=== PATIENT | female | born 1960 | race African-American/Black ===

== ENCOUNTER 2017-02-04 12:16 | Inpatient (IN) | payer OTHER ==
[~2017-02-04] VITALS: Ht 167.6 cm; Wt 121.1 kg
[2017-02-04] MEDS ORDERED: ASPIRIN 81MG TABLET PO STA (17:02)
[2017-02-04] MEDS ORDERED: NITROGLYCERIN OINT 1GM/INCH UDPKT TD STA (17:02)
[2017-02-04] MEDS ORDERED: CLONIDINE 0.2MG TABLET PO ONE (17:15)
[2017-02-04 17:45] LABS: CHLORIDE 106 mEq/L (98-107)
[2017-02-04 17:46] LABS: BASOPHILS % 0.1 % (0.0-2.0); EOSINOPHILS % 1.8 % (0.0-5.0); HEMATOCRIT. 42.1 % (36.0-48.0); HEMOGLOBIN. 13.6 g/dL (12.0-16.0); LYMPHOCYTES % 23.2 % (20.0-50.0); MEAN CORPUSCULAR HEMOGLOBIN 26.9 pg (28.0-32.0); MEAN CORPUSCULAR VOLUME 83.3 fL (81.0-99.0); MEAN PLATELET VOLUME 8.2 fl (7.4-10.4); MONOCYTES % 8.2 % (2.0-8.0); NEUTROPHILS % 66.7 % (40.0-76.0); PLATELET 284 x1000/uL (130-400); RED BLOOD CELL COUNT 5.05 mill/uL (4.2-5.4); RED CELL DISTRIBUTION WIDTH 15.2 % (11.6-14.6)
[2017-02-04 17:47] LABS: D-DIMER 0.52 mg/L FEU (<0.50); PARTIAL THROMBOPLASTIN TIME 28.3 sec (23.4-31.0); PROTHROMBIN TIME 10.7 sec (9.4-11.6)
[2017-02-04 17:51] LABS: CARBON DIOXIDE 28 mEq/L (21-32)
[2017-02-04 17:54] LABS: TROPONIN I 0.03 ng/mL (0.00-0.04)
[2017-02-04] MEDS ORDERED: LEVOFLOXACIN 750MG PREMIX 150 ML IV ONE (19:15)
[2017-02-04] MEDS ORDERED: SODIUM CHLORIDE 0.9% 1000ML BAG (SEPSIS BOLUS) IV ONE (19:15)
[2017-02-04] MEDS ORDERED: IOHEXOL-350 100 ML BOTTLE ONE (19:49)
[2017-02-04 21:04] LABS: CLARITY URINE CLEAR (CLEAR); COLOR URINE YELLOW (YELLOW); KETONES URINE NEGATIVE (NEGATIVE); LEUKOCYTE ESTERASE URINE TRACE (NEGATIVE); NITRITE URINE NEGATIVE (NEGATIVE); OCCULT BLOOD URINE NEGATIVE (NEGATIVE); PROTEIN URINE NEGATIVE (NEGATIVE); SPECIFIC GRAVITY URINE 1.041 (1.005-1.030); UROBILINOGEN URINE 0.2 E.U./dL (0.2-1.0)
[2017-02-04 22:00] VITALS: BP 136/71
[2017-02-04] MEDS ORDERED: ASPI-1159 PO (22:47)
[2017-02-04] MEDS ORDERED: FURO20TA4 PO (22:47)
[2017-02-04] MEDS ORDERED: LISI40TA4 PO (22:47)
[2017-02-04] MEDS ORDERED: RANI150T7 PO (22:47)
[2017-02-04] MEDS ORDERED: LABE300T PO (22:47)
[2017-02-04] MEDS ORDERED: SPIR25TA4 PO (22:47)
[2017-02-04] MEDS ORDERED: METF10002 PO (22:47)
[2017-02-04] MEDS ORDERED: NIFE-1 PO (22:47)
[2017-02-04] MEDS ORDERED: DOCU-138 PO (22:47)
[2017-02-04] MEDS ORDERED: ATOR-2 PO (22:47)
[2017-02-04] MEDS ORDERED: DULA0.75 SQ (22:51)
[2017-02-04] MEDS ORDERED: MAGNESIUM/ALUMINUM HYDROXIDE/SIMETHICONE 30ML UDC PO PRN (23:30)
[2017-02-04] MEDS ORDERED: DOCUSATE SODIUM 100MG CAPSULE PO PRN (23:30)
[2017-02-04] MEDS ORDERED: MORPHINE SULFATE 2 MG/ML CPJ (NOT FOR IM USE) IV PRN (23:30)
[2017-02-04] MEDS ORDERED: DIPHENHYDRAMINE 50MG/ML VIAL IV PRN (23:30)
[2017-02-04] MEDS ORDERED: ACETAMINOPHEN 650MG SUPP PR PRN (23:30)
[2017-02-04] MEDS ORDERED: ONDANSETRON HCL 4MG/2ML VIAL IV PRN (23:30)
[2017-02-04] MEDS ORDERED: NA PHOS,M-B/NA PHOS,DI-BA ENEMA 118ML PR PRN (23:30)
[2017-02-04] MEDS ORDERED: HYDROCODONE/ACETAMINOPHEN 10/325MG TABLET PO PRN (23:30)
[2017-02-04] MEDS ORDERED: ACETAMINOPHEN 325MG TABLET PO PRN (23:30)
[2017-02-04] MEDS ORDERED: ACETAMINOPHEN 650MG/20.3ML UDC GT PRN (23:30)
[2017-02-04] MEDS ORDERED: IPRATROPIUM/ALBUTEROL 0.5-3(2.5)MG/3ML NEB INH PRN (23:30)
[2017-02-04] MEDS ORDERED: GUAIFENESIN 200MG/10ML SUGAR FREE UDC PO PRN (23:30)
[2017-02-04] MEDS ORDERED: HYDROCODONE/ACETAMINOPHEN 5/325MG TABLET PO PRN (23:30)
[2017-02-05] VITALS: BP 164/88
[2017-02-05] MEDS: SULFAMETHOXAZOLE/TRIMETHOPRIM 800/160MG TABLET PO SCH ×3 (01:15→20:56)
[2017-02-05] MEDS: ENOXAPARIN 40MG/0.4ML SYR SUBCUT SCH ×2 (01:16→10:43)
[2017-02-05] MEDS: IPRATROPIUM/ALBUTEROL 0.5-3(2.5)MG/3ML NEB INH SCH ×3 (01:37→13:25)
[2017-02-05 04:00] VITALS: BP 171/81
[2017-02-05] MEDS: SODIUM CHLORIDE 0.9% INJ 3ML FLUSH IVF SCH ×3 (05:55→20:55)
[2017-02-05 08:00] VITALS: BP_SYST 122; BP_SYST 127; BP_DIAS 65; BP_DIAS 72
[2017-02-05 08:55] LABS: CREATINE KINASE 190 IU/L (26-192); TROPONIN I < 0.02 ng/mL (0.00-0.04)
[2017-02-05] MEDS ORDERED: ASPIRIN 81MG EC TABLET PO SCH (09:00)
[2017-02-05 09:48] LABS: *AMPHETAMINES SCREEN URINE NEGATIVE (NEGATIVE); *BARBITURATES SCREEN URINE NEGATIVE (NEGATIVE); *BENZODIAZEPINES SCREEN URINE NEGATIVE (NEGATIVE); *COCAINE SCREEN URINE NEGATIVE (NEGATIVE); CANNABINOID URINE SCREEN NEGATIVE (NEGATIVE); METHADONE URINE SCREEN NEGATIVE (NEGATIVE); OPIATES URINE SCREEN PRESUMTIVE POSITIVE (NEGATIVE); PHENCYCLIDINE URINE SCREEN NEGATIVE (NEGATIVE)
[2017-02-05 10:07] LABS: CLARITY URINE CLEAR (CLEAR); COLOR URINE YELLOW (YELLOW); KETONES URINE NEGATIVE (NEGATIVE); LEUKOCYTE ESTERASE URINE NEGATIVE (NEGATIVE); NITRITE URINE NEGATIVE (NEGATIVE); OCCULT BLOOD URINE NEGATIVE (NEGATIVE); PROTEIN URINE NEGATIVE (NEGATIVE); SPECIFIC GRAVITY URINE 1.036 (1.005-1.030); UROBILINOGEN URINE 0.2 E.U./dL (0.2-1.0)
[2017-02-05] MEDS: SPIRONOLACTONE 25MG TABLET PO SCH (10:39)
[2017-02-05] MEDS: FUROSEMIDE 20MG TABLET PO SCH (10:40)
[2017-02-05] MEDS: DOCUSATE SODIUM 100MG CAPSULE PO SCH ×2 (10:40→18:24)
[2017-02-05] MEDS: LABETALOL HCL 300MG TABLET PO SCH ×2 (10:41→20:57)
[2017-02-05] MEDS: LISINOPRIL 40MG TABLET PO SCH (10:43)
[2017-02-05] MEDS ORDERED: REGADENOSON 0.4 MG/5 ML IV ONE ×2 (11:45→13:57)
[2017-02-05 12:00] VITALS: BP 130/71
[2017-02-05 12:39] LABS: T4 FREE 1.02 ng/dL (0.76-1.46)
[2017-02-05 16:23] VITALS: BP 164/74
[2017-02-05 17:47] LABS: CREATINE KINASE 205 IU/L (26-192); CREATINE KINASE MB FRACTION 3.9 ng/mL (0.5-3.6); TROPONIN I < 0.02 ng/mL (0.00-0.04)
[2017-02-05 20:00] VITALS: BP 139/52
[2017-02-06] VITALS: BP 129/58
[2017-02-06 00:16] LABS: CARBON DIOXIDE 26 mEq/L (21-32); CHLORIDE 105 mEq/L (98-107)
[2017-02-06 00:22] LABS: CREATINE KINASE MB FRACTION 3.9 ng/mL (0.5-3.6)
[2017-02-06] MEDS: IPRATROPIUM/ALBUTEROL 0.5-3(2.5)MG/3ML NEB INH SCH ×3 (03:09→14:30)
[2017-02-06 04:00] VITALS: BP 142/57
[2017-02-06] MEDS: SODIUM CHLORIDE 0.9% INJ 3ML FLUSH IVF SCH (05:51)
[2017-02-06] MEDS ORDERED: SODIUM CHLORIDE 0.9% 10ML VIAL ONE (06:50)
[2017-02-06 07:18] LABS: BASOPHILS % 0.3 % (0.0-2.0); EOSINOPHILS % 1.6 % (0.0-5.0); HEMATOCRIT. 36.8 % (36.0-48.0); HEMOGLOBIN. 11.7 g/dL (12.0-16.0); LYMPHOCYTES % 30.7 % (20.0-50.0); MEAN CORPUSCULAR HEMOGLOBIN 26.2 pg (28.0-32.0); MEAN CORPUSCULAR VOLUME 82.7 fL (81.0-99.0); MEAN PLATELET VOLUME 8.4 fl (7.4-10.4); MONOCYTES % 10.9 % (2.0-8.0); NEUTROPHILS % 56.5 % (40.0-76.0); PLATELET 266 x1000/uL (130-400); RED BLOOD CELL COUNT 4.45 mill/uL (4.2-5.4)
[2017-02-06 08:00] VITALS: BP 138/67
[2017-02-06] MEDS ORDERED: ASPIRIN 81MG TABLET PO SCH (09:00)
[2017-02-06] MEDS: LABETALOL HCL 300MG TABLET PO SCH (09:16)
[2017-02-06] MEDS: SULFAMETHOXAZOLE/TRIMETHOPRIM 800/160MG TABLET PO SCH (09:17)
[2017-02-06] MEDS: DOCUSATE SODIUM 100MG CAPSULE PO SCH (09:17)
[2017-02-06] MEDS: FUROSEMIDE 20MG TABLET PO SCH (09:17)
[2017-02-06] MEDS: SPIRONOLACTONE 25MG TABLET PO SCH (09:17)
[2017-02-06] MEDS: LISINOPRIL 40MG TABLET PO SCH (09:17)
[2017-02-06] MEDS: ENOXAPARIN 40MG/0.4ML SYR SUBCUT SCH (09:18)
[2017-02-06 13:17] VITALS: BP 153/68
[2017-02-06] MEDS ORDERED: ENOXAPARIN 30MG/0.3ML SYR SUBCUT SCH (21:00)
== END 2017-02-06 14:45 | disposition home or self-care (01) | DRG 313 ==
LOC: ER 13:30 → 5WST 19:35 → EDBEDREQ 19:37 → EDBEDREQTM 19:37 → ENRESERV 19:50
PROVIDERS: ADMIT Family Medicine; ATTEND Family Medicine
DX: R07.9 Chest pain, unspecified (principal); I25.10 Atherosclerotic heart disease of native coronary artery without angina pectoris; I11.0 Hypertensive heart disease with heart failure; I50.9 Heart failure, unspecified; I42.9 Cardiomyopathy, unspecified; I50.32 Chronic diastolic (congestive) heart failure; Z68.43 Body mass index [BMI] 50.0-59.9, adult; E11.9 Type 2 diabetes mellitus without complications; E66.9 Obesity, unspecified; E78.5 Hyperlipidemia, unspecified; K57.90 Diverticulosis of intestine, part unspecified, without perforation or abscess without bleeding; Z60.2 Problems related to living alone; I25.2 Old myocardial infarction; Z79.899 Other long term (current) drug therapy; Z79.82 Long term (current) use of aspirin; Z88.8 Allergy status to other drugs, medicaments and biological substances
CPT/HCPCS: 36415; 71010; 71275; 78452; 80048; 80053; 80061; 80305; 81001; 81003; 82550; 82553; 82962; 83036; 83605; 83880; 84439; 84443; 84484; 85025; 85379; 85610; 85730; 87040; 87086; 93005; 93017; 93306; 94640; 96374; 99285; A4216; A9500; J1650; J1956; J2785; J7030; J7620; Q9967

== ENCOUNTER 2021-02-22 02:48 | Inpatient (IN) | payer MEDICAID, OTHER ==
[~2021-02-22] VITALS: Ht 157.5 cm; Wt 113.4 kg
[~2021-02-22 02:48] MED LIST: ASPI-1497 PO; ATOR-2 PO; DOCU-138 PO; DULA0.75 SQ; FURO20TA4 PO; LABE300T3 PO; LISI40TA13 PO; METF-416 PO; NIFE-53 PO; RANI150T7 PO; SPIR25TA6 PO
[2021-02-22] MEDS ORDERED: ONDANSETRON HCL 4MG/2ML INJ IV STA (03:14)
[2021-02-22] MEDS ORDERED: MORPHINE SULFATE 4 MG/ML CPJ (NOT FOR IM USE) IV STA (03:14)
[2021-02-22] MEDS ORDERED: MAGNESIUM/ALUMINUM HYDROXIDE/SIMETHICONE 30ML UDC PO ONE (03:15)
[2021-02-22] MEDS ORDERED: NITROGLYCERIN 0.4MG TABLET SL SL PRN ×2 (03:15→10:30)
[2021-02-22] MEDS ORDERED: VISCOUS LIDOCAINE 2% 15 ML UDC PO ONE (03:15)
[2021-02-22 04:59] LABS: CHLORIDE 106 mEq/L (98-107)
[2021-02-22 08:38] LABS: BASOPHILS % 0.5 % (0.0-2.0); EOSINOPHILS % 0.5 % (0.0-5.0); HEMATOCRIT. 38.1 % (36.0-48.0); HEMOGLOBIN. 12.1 g/dL (12.0-16.0); LYMPHOCYTES % 33.8 % (20.0-50.0); MEAN CORPUSCULAR HEMOGLOBIN 25.9 pg (28.0-32.0); MEAN CORPUSCULAR VOLUME 81.6 fL (81.0-99.0); MEAN PLATELET VOLUME 9.1 fl (7.4-10.4); MONOCYTES % 11.3 % (2.0-8.0); NEUTROPHILS % 53.9 % (40.0-76.0); PLATELET 207 x1000/uL (130-400); RED BLOOD CELL COUNT 4.67 mill/uL (4.2-5.4); RED CELL DISTRIBUTION WIDTH 16.4 % (11.6-14.6)
[2021-02-22] MEDS ORDERED: IPRATROPIUM/ALBUTEROL 0.5-3(2.5)MG/3ML NEB NEB PRN (10:00)
[2021-02-22] MEDS ORDERED: KETOROLAC 15MG/ML VIAL IV PRN (10:00)
[2021-02-22] MEDS ORDERED: GUAIFENESIN 200MG/10ML SUGAR FREE UDC PO PRN (10:00)
[2021-02-22] MEDS ORDERED: ONDANSETRON HCL 4MG/2ML INJ IV PRN (10:00)
[2021-02-22] MEDS ORDERED: ACETAMINOPHEN 325MG TABLET PO PRN ×2 (10:00)
[2021-02-22] MEDS ORDERED: MAGNESIUM/ALUMINUM HYDROXIDE/SIMETHICONE 30ML UDC PO PRN (10:00)
[2021-02-22] MEDS ORDERED: DOCUSATE SODIUM 100MG CAPSULE PO PRN (10:00)
[2021-02-22] MEDS ORDERED: DEXTROSE 50% WATER 50ML SYRINGE IV PRN (10:00)
[2021-02-22 10:51] LABS: FOLIC ACID (FOLATE) SERUM 14.9 ng/mL (>5.38)
[2021-02-22] MEDS: NIFEDIPINE XL 30MG TAB PO SCH (11:15)
[2021-02-22] MEDS: ENOXAPARIN 40MG/0.4ML SYR SUBCUT SCH (11:15)
[2021-02-22] MEDS: LABETALOL HCL 300MG TABLET PO SCH ×2 (11:26→23:44)
[2021-02-22] MEDS: BLOOD SUGAR DIAGNOSTIC STRIP TEST SCH ×3 (11:43→21:00)
[2021-02-22] MEDS: INSULIN LISPRO 100 UNITS/ML SUBCUT SCH ×3 (12:00→21:00)
[2021-02-22 14:52] LABS: CREATINE KINASE MB FRACTION 4.4 ng/mL (0.5-3.6)
[2021-02-22] MEDS: FUROSEMIDE 40MG/4ML VIAL IVP SCH (18:00)
[2021-02-22] MEDS ORDERED: FUROSEMIDE 40MG/4ML VIAL IVP SCH (21:00)
[2021-02-22] MEDS ORDERED: ZOLPIDEM TARTRATE 5MG TABLET PO PRN (21:00)
[2021-02-22] MEDS ORDERED: SPIRONOLACTONE 25MG TABLET PO SCH (21:00)
[2021-02-22 23:27] VITALS: BP 150/87
[2021-02-22] MEDS: FAMOTIDINE 20MG TABLET PO SCH (23:44)
[2021-02-23] VITALS: BP 150/87
[2021-02-23 04:00] VITALS: BP 130/79
[2021-02-23] MEDS: FUROSEMIDE 40MG/4ML VIAL IVP SCH ×2 (06:19→17:33)
[2021-02-23 06:50] LABS: BASOPHILS % 0.6 % (0.0-2.0); EOSINOPHILS % 1.1 % (0.0-5.0); HEMATOCRIT. 36.5 % (36.0-48.0); HEMOGLOBIN. 11.7 g/dL (12.0-16.0); LYMPHOCYTES % 25.2 % (20.0-50.0); MEAN CORPUSCULAR HEMOGLOBIN 26.2 pg (28.0-32.0); MEAN CORPUSCULAR VOLUME 81.6 fL (81.0-99.0); MEAN PLATELET VOLUME 9.2 fl (7.4-10.4); MONOCYTES % 11.1 % (2.0-8.0); PLATELET 192 x1000/uL (130-400); RED BLOOD CELL COUNT 4.48 mill/uL (4.2-5.4); RED CELL DISTRIBUTION WIDTH 16.1 % (11.6-14.6)
[2021-02-23] MEDS: INSULIN LISPRO 100 UNITS/ML SUBCUT SCH ×4 (07:16→21:00)
[2021-02-23] MEDS: BLOOD SUGAR DIAGNOSTIC STRIP TEST SCH ×4 (07:16→21:00)
[2021-02-23 07:43] LABS: CHLORIDE 109 mEq/L (98-107)
[2021-02-23 07:53] LABS: PHOSPHORUS 4.1 mg/dL (2.5-4.9)
[2021-02-23 07:54] LABS: LDL CHOLESTEROL 75 mg/dL (5-100)
[2021-02-23 07:55] LABS: HDL CHOLESTEROL 37 mg/dL (40-59)
[2021-02-23 08:00] VITALS: BP 160/98
[2021-02-23] MEDS ORDERED: ASPIRIN 325MG EC TABLET PO SCH (09:00)
[2021-02-23] MEDS: ASPIRIN 81MG EC TABLET PO SCH (09:10)
[2021-02-23] MEDS: NIFEDIPINE XL 30MG TAB PO SCH (09:10)
[2021-02-23] MEDS: FAMOTIDINE 20MG TABLET PO SCH ×2 (09:11→21:37)
[2021-02-23] MEDS: SPIRONOLACTONE 25MG TABLET PO SCH (09:11)
[2021-02-23] MEDS: LABETALOL HCL 300MG TABLET PO SCH (09:11)
[2021-02-23] MEDS: ENOXAPARIN 40MG/0.4ML SYR SUBCUT SCH (09:11)
[2021-02-23 12:00] VITALS: BP 133/71
[2021-02-23] MEDS: LOSARTAN POTASSIUM 25 MG TABLET PO SCH (14:36)
[2021-02-23] MEDS: CARVEDILOL 6.25 MG TABLET PO SCH ×2 (14:37→21:37)
[2021-02-23 16:00] VITALS: BP 149/85
[2021-02-23 20:00] VITALS: BP 141/89
[2021-02-24] VITALS: BP 117/51
[2021-02-24 04:00] VITALS: BP 129/56
[2021-02-24] MEDS: FUROSEMIDE 40MG/4ML VIAL IVP SCH ×2 (06:44→17:52)
[2021-02-24] MEDS: INSULIN LISPRO 100 UNITS/ML SUBCUT SCH ×4 (07:10→20:54)
[2021-02-24] MEDS: BLOOD SUGAR DIAGNOSTIC STRIP TEST SCH ×4 (07:10→20:53)
[2021-02-24 08:00] VITALS: BP 167/95
[2021-02-24] MEDS: NIFEDIPINE XL 30MG TAB PO SCH (09:40)
[2021-02-24] MEDS: FAMOTIDINE 20MG TABLET PO SCH ×2 (09:41→20:54)
[2021-02-24] MEDS: LOSARTAN POTASSIUM 25 MG TABLET PO SCH (09:41)
[2021-02-24] MEDS: CARVEDILOL 6.25 MG TABLET PO SCH ×2 (09:41→20:54)
[2021-02-24] MEDS: SPIRONOLACTONE 25MG TABLET PO SCH (09:41)
[2021-02-24] MEDS: ASPIRIN 81MG EC TABLET PO SCH (09:41)
[2021-02-24] MEDS: ENOXAPARIN 30MG/0.3ML SYR SUBCUT SCH ×2 (09:42→20:55)
[2021-02-24 12:00] VITALS: BP 171/85
[2021-02-24] MEDS: CLONIDINE 0.1MG TABLET PO PRN (12:56)
[2021-02-24 16:00] VITALS: BP 131/72
[2021-02-24 20:00] VITALS: BP 148/73
[2021-02-25] VITALS: BP 135/70
[2021-02-25 04:00] VITALS: BP 147/78
[2021-02-25] MEDS: FUROSEMIDE 40MG/4ML VIAL IVP SCH (06:04)
[2021-02-25] MEDS: BLOOD SUGAR DIAGNOSTIC STRIP TEST SCH ×2 (06:32→12:20)
[2021-02-25] MEDS: INSULIN LISPRO 100 UNITS/ML SUBCUT SCH (06:32)
[2021-02-25] MEDS: ENOXAPARIN 30MG/0.3ML SYR SUBCUT SCH (09:00)
[2021-02-25] MEDS ORDERED: CARVEDILOL 12.5MG TABLET PO SCH (09:00)
[2021-02-25] MEDS: LOSARTAN POTASSIUM 25 MG TABLET PO SCH (09:49)
[2021-02-25] MEDS: ASPIRIN 81MG EC TABLET PO SCH (09:49)
[2021-02-25] MEDS: FAMOTIDINE 20MG TABLET PO SCH (09:49)
[2021-02-25] MEDS: SPIRONOLACTONE 25MG TABLET PO SCH (09:51)
[2021-02-25] MEDS: NIFEDIPINE XL 30MG TAB PO SCH (09:51)
[2021-02-25 12:45] VITALS: BP 168/99
[2021-02-25] MEDS: CLONIDINE 0.1MG TABLET PO PRN (13:08)
== END 2021-02-25 14:02 | disposition home or self-care (01) | DRG 190 ==
LOC: ER 02:48 → MICUSO 06:38 → 6WST 21:24
PROVIDERS: ADMIT Internal Medicine; ATTEND Internal Medicine
DX: I21.4 Non-ST elevation (NSTEMI) myocardial infarction (principal); I50.43 Acute on chronic combined systolic (congestive) and diastolic (congestive) heart failure; I42.8 Other cardiomyopathies; E44.0 Moderate protein-calorie malnutrition; E83.51 Hypocalcemia; E11.9 Type 2 diabetes mellitus without complications; I11.0 Hypertensive heart disease with heart failure; E66.9 Obesity, unspecified; I16.1 Hypertensive emergency; E78.5 Hyperlipidemia, unspecified; R74.01 Elevation of levels of liver transaminase levels; Z20.822 Contact with and (suspected) exposure to COVID-19; M94.0 Chondrocostal junction syndrome [Tietze]; Z88.8 Allergy status to other drugs, medicaments and biological substances; Z79.899 Other long term (current) drug therapy; Z79.82 Long term (current) use of aspirin; Z68.42 Body mass index [BMI] 45.0-49.9, adult; Z79.4 Long term (current) use of insulin
CPT/HCPCS: 36415; 71045; 80053; 80061; 82550; 82553; 82607; 82746; 82962; 83036; 83540; 83550; 83615; 83735; 83880; 84100; 84145; 84443; 84484; 85025; 85379; 87426; 93005; 93306; 93970; 99285; J1650; J1940; J2270; J2405